=== PATIENT | female | born 1975 | race Caucasian/White ===

== ENCOUNTER 2017-03-14 15:53 | Emergency (ER) | payer SELFPAY | END 2017-03-14 20:26 | disposition left against medical advice (07) | LOC: ER1 15:53 | DX: Z53.21 Procedure and treatment not carried out due to patient leaving prior to being seen by health care provider (principal) | CPT/HCPCS: 93005 ==

== ENCOUNTER 2021-08-13 02:24 | Emergency (ER) | payer SELFPAY ==
[2021-08-13 02:56] LABS: HEMOGLOBIN 13.1 gm/dl (12.3-15.3); RED BLOOD COUNT 4.31 M/UL (4.00-5.10); WHITE BLOOD COUNT 10.7 K/UL (4.5-11.0)
[2021-08-13 03:13] LABS: BUN/CREATININE RATIO 18 (0-10)
[2021-08-13] MEDS ORDERED: FLOMAX 0.4 MG0.4 MG PO (04:51)
[2021-08-13] MEDS ORDERED: HYDROCODON-ACE1 EAC4 PO (04:51)
[2021-08-13] MEDS ORDERED: PHENERGAN 12.12.5 M1 PO (04:51)
== END 2021-08-13 05:10 | disposition home or self-care (01) ==
LOC: ER1 02:24
PROVIDERS: Family Medicine
DX: N13.2 Hydronephrosis with renal and ureteral calculous obstruction (principal); F17.200 Nicotine dependence, unspecified, uncomplicated; Z88.5 Allergy status to narcotic agent; Z88.8 Allergy status to other drugs, medicaments and biological substances
CPT/HCPCS: 80053; 81001; 83690; 84703; 85025; 96374; 96375; 96376; 99284; J1885; J2270; J2405; J2550